=== PATIENT | female | born 1990 | race Caucasian/White ===

== ENCOUNTER 2019-04-11 09:41 | Emergency (ER) | payer OTHER ==
[~2019-04-11] VITALS: Ht 172.7 cm; Wt 93.9 kg
[2019-04-11] MEDS ORDERED: NF-METHYLP PO (10:11)
--- NOTE | 2019-04-11 10:12 | ED Integumentary General ---
General Chief Complaint: Skin/Wound Problems Stated Complaint: PT HAS POISON MARINA Source: patient Exam Limitations: no limitations History of Present Illness Date Seen by Provider: Apr 11, 2019 Time Seen by Provider: 10:02 Initial Comments Patient presents to ER by private conveyance with chief complaint that yesterday started getting a rash on both of her upper extremities, on her back, left groin and summer on her left ear. It is itchy, not draining, no fevers chills or history of skin disease. She has not been on steroids recently. Allergies and Home Medications Patient Home Medication List Home Medication List Reviewed: Yes Review of Systems Review of Systems Constitutional: No chills, No diaphoresis EENTM: No ear discharge, No ear pain Respiratory: No cough, No short of breath Cardiovascular: No chest pain, No edema Gastrointestinal: No abdominal pain, No constipation Past Gtkizos-Fontid-Dhlwmp Hx Patient Social History Alcohol Use: Denies Use Recreational Drug Use: No Physical Exam Vital Signs Capillary Refill : General Appearance: WD/WN, no apparent distress HEENT: PERRL/EOMI, pharynx normal Cardiovascular: normal peripheral pulses, no edema Neurologic/Psychiatric: alert, normal mood/affect Skin: other (erythematous, pruritic, rash consistent with contact dermatitis in various folds of her upper extremities, back, left side of her face and head.) Progress/Results/Core Measures Progress Progress Note : Time: 10:10 Progress Note Because it involves her face and multiple areas with private better to do a Med rol Dosepak then attempt topical steroids. She is already using a topical anti- itch lotion. Departure Impression Primary Impression: Contact dermatitis due to poison marina Disposition: 01 HOME, SELF-CARE Condition: Stable Departure-Patient Inst. Decision time for Depature: 10:10 Referrals: NO,LOCAL PHYSICIAN (PCP/Family) Primary Care Physician Patient Instructions: Contact Dermatitis (DC) Add. Discharge Instructions: Take steroids as prescribed. You can use kcat-rcs-xfmnark hydrocortisone cream or topical anti-itch lotions. Zyrtec or Claritin are also helpful for reducing the sensation of itch. If not improving follow up with primary care for reevaluation. Common side effect to steroids are equal to getting to sleep, feeling wired or full of energy. All discharge instructions reviewed with patient and/or family. Voiced understanding. Scripts Methylprednisolone (Medrol) 4 Mg Tab 4 MG PO UD for 6 Days, #21 TAB 0 Refills as directed per dose pack Prov: CARLOS CAVAZOS 04/11/19 CARLOS CAVAZOS Apr 11, 2019 10:12
[2019-04-11 10:19] VITALS: BP 124/80
== END 2019-04-11 10:18 | disposition home or self-care (01) ==
LOC: ER FS 09:44
DX: L23.7 Allergic contact dermatitis due to plants, except food (principal)
CPT/HCPCS: 99282

== ENCOUNTER → 2020-02-23 | Outpatient (CLI) | payer OTHER ==
[~2020-02-23] MED LIST: NF-METHYLP PO
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
== END ==
LOC: RAD FS 10:16
PROVIDERS: ATTEND Nurse Practitioner Family
DX: S09.90XA Unspecified injury of head, initial encounter (principal); W19.XXXA Unspecified fall, initial encounter
CPT/HCPCS: 70450

== ENCOUNTER 2023-05-26 09:56 | Emergency (ER) | payer BC, OTHER ==
[~2023-05-26] VITALS: Ht 172 cm; Wt 109.0 kg
[2023-05-26 10:05] VITALS: BP 143/85
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
[2023-05-26] MEDS ORDERED: IBUPROFEN 600 MG TABLET PO ONE (11:00)
== END 2023-05-26 10:52 | disposition home or self-care (01) ==
LOC: EDUNIT# 09:56 → ER FS 09:59
DX: S06.0XAA Concussion with loss of consciousness status unknown, initial encounter (principal); S00.91XA Abrasion of unspecified part of head, initial encounter; S80.212A Abrasion, left knee, initial encounter; M79.645 Pain in left finger(s); F17.210 Nicotine dependence, cigarettes, uncomplicated; Y04.0XXA Assault by unarmed brawl or fight, initial encounter
CPT/HCPCS: 70450; 73130; 73562